=== PATIENT | male | born 1950 | race African-American/Black ===

== ENCOUNTER 2016-06-21 11:29 | Emergency (ER) | payer MEDICARE, MEDICAID ==
--- NOTE | 2016-06-21 11:54 | ER Document Report ---
ED Medical Screen (RME) - General Stated Complaint: LEG PAIN Notes: patient is a 66 year old male c/o leg infection right leg, below the knee. attends wound clinic denies DM, fevers chills chronic wound on left ankle from 2011 afebrile, NSR, normotensive I have greeted and performed a rapid initial assessment of this patient. A comprehensive ED assessment and evaluation of the patient, analysis of test results and completion of the medical decision making process will be conducted by additional ED providers. TRAVEL OUTSIDE OF THE [place] IN LAST 30 DAYS: No - Related Data Allergies/Adverse Reactions: No Known Drug Allergies Allergy (Verified 12/16/13 08:50) fish Adverse Reaction (Unknown, Uncoded 12/16/13 08:50) taste makes pt sick Past Medical History - Past Medical History Cardiac Medical History: Denies: Hx Coronary Artery Disease, Hx Heart Attack, Hx Hypertension Pulmonary Medical History: Reports: Hx Asthma Denies: Hx Bronchitis, Hx COPD, Hx Pneumonia Neurological Medical History: Denies: Hx Cerebrovascular Accident, Hx Seizures GI Medical History: Denies: Hx Hepatitis, Hx Hiatal Hernia, Hx Ulcer Musculoskeltal Medical History: Denies Hx Arthritis Infectious Medical History: Denies: Hx Hepatitis Past Surgical History: Denies: Hx Open Heart Surgery, Hx Pacemaker - Immunizations Hx Diphtheria, Pertussis, Tetanus Vaccination: No
--- NOTE | 2016-06-21 12:53 | ER Document Report ---
HPI - HPI Patient complains to provider of: right leg rash Onset: Other - 1 week Onset/Duration: Better Pain Level: 0 Context: 66-year-old male saw Dr. Freeman on Saturday due to a rash on both sides of his right lower leg. She started him on and told him on Saturday to come to the emergency room because he may need an IV antibiotics. The patient states the rash is better with the oral medication but he could not make it to the ER until today. No fever. No chills. Associated Symptoms: None Exacerbated by: Denies Relieved by: Denies Similar symptoms previously: Yes Recently seen / treated by doctor: Yes - ROS ROS below otherwise negative: Yes Systems Reviewed and Negative: Yes All other systems reviewed and negative - REPRODUCTIVE Reproductive: DENIES: : - DERM Skin Color: Normal Past Medical History - General Information source: Patient - Social History Smoking Status: Current Every Day Smoker Chew tobacco use (# tins/day): No Frequency of alcohol use: None Drug Abuse: None Lives with: Family Family History: Reviewed & Not Pertinent Patient has suicidal ideation: No Patient has homicidal ideation: No Pulmonary Medical History: Reports: Hx Asthma Renal/ Medical History: Denies: Hx Peritoneal Dialysis - Immunizations Hx Diphtheria, Pertussis, Tetanus Vaccination: No Vertical Provider Document - CONSTITUTIONAL Agree With Documented VS: Yes Exam Limitations: No Limitations - INFECTION CONTROL TRAVEL OUTSIDE OF THE [place] IN LAST 30 DAYS: No - HEENT HEENT: Normocephalic - NECK Neck: Supple - RESPIRATORY O2 Sat by Pulse Oximetry: 95 - MUSCULOSKELETAL/EXTREMETIES Musculoskeletal/Extremeties: MAEW, FROM, Tender - Mild tender to open weeping lesions rash to his right lower anterior lateral leg, Edema - Chronic - NEURO Level of Consciousness: Awake, Alert Motor/Sensory: No Motor Deficit, No Sensory Deficit - DERM Integumentary: Warm, Dry, Rash - See above Course - Re-evaluation Re-evalutation: 06/21/16 14:16 I have consulted with the supervisory physician per [facility] Guidelines.. dr rothman, who examined the pt. - Vital Signs Vital signs: Temp Pulse Resp BP Pulse Ox 98.1 F 93 16 139/78 H 95 06/21/16 11:53 06/21/16 11:53 06/21/16 11:53 06/21/16 11:53 06/21/16 11:53 Discharge - Discharge Clinical Impression: right lower leg weeping rash Condition: Good Disposition: HOME, SELF-CARE Instructions: Infections ([facility]), Leg Pain Nonspecific ([facility]) Additional Instructions: wound culture is pending to er if worse see dr. freeman on saturday, not saturday elevate the leg Prescriptions: Cephalexin Monohydrate [Keflex 500 mg Capsule] 500 mg PO QID #28 capsule Referrals: MALISSA FREEMAN MD [Primary Care Provider] - 06/25/16
[2016-06-21] MEDS ORDERED: CEPHALEXIN 500 MG CAPSULE PO ONE (14:23)
[2016-06-21 15:14] VITALS: BP 151/75
== END 2016-06-21 15:10 | disposition home or self-care (01) ==
LOC: ER 11:29
DX: M79.604 Pain in right leg (principal); R21 Rash and other nonspecific skin eruption; F17.200 Nicotine dependence, unspecified, uncomplicated
CPT/HCPCS: 99283; 87070; 87205; 87077; 87186; A9270

== ENCOUNTER 2018-03-06 09:13 | Emergency (ER) | payer MEDICARE, MEDICAID ==
[2018-03-06 09:25] VITALS: BP 132/69
[2018-03-06] MEDS ORDERED: HYDROCODONE/ACETAMINOPHEN 5-325 MG TABLET PO ONE ×2 (09:48→11:49)
[2018-03-06] MEDS ORDERED: LIDOCAINE 1%/EPINEPHRINE INJ 20 ML VIAL INJ ONE (09:48)
--- NOTE | 2018-03-06 09:50 | ER Document Report ---
ED Medical Screen (RME) - General Chief Complaint: Abscess Stated Complaint: POSSIBLE CYST Time Seen by Provider: 03/06/18 09:48 TRAVEL OUTSIDE OF THE [place] IN LAST 30 DAYS: No - HPI Notes: 03/06/18 09:49 Possible abscess pilonidal cyst to the left upper buttocks patient has a history ongoing for the last 2 days - Related Data Allergies/Adverse Reactions: No Known Drug Allergies Allergy (Verified 03/06/18 09:47) fish Adverse Reaction (Unknown, Uncoded 03/06/18 09:47) taste makes pt sick Past Medical History - Social History Frequency of alcohol use: None Drug Abuse: None - Past Medical History Cardiac Medical History: Denies: Hx Coronary Artery Disease, Hx Heart Attack, Hx Hypertension Pulmonary Medical History: Reports: Hx Asthma Denies: Hx Bronchitis, Hx COPD, Hx Pneumonia Neurological Medical History: Denies: Hx Cerebrovascular Accident, Hx Seizures Renal/ Medical History: Denies: Hx Peritoneal Dialysis GI Medical History: Denies: Hx Hepatitis, Hx Hiatal Hernia, Hx Ulcer Musculoskeltal Medical History: Denies Hx Arthritis Infectious Medical History: Denies: Hx Hepatitis Past Surgical History: Reports: Hx Orthopedic Surgery - right ankle. Denies: Hx Open Heart Surgery, Hx Pacemaker - Immunizations Hx Diphtheria, Pertussis, Tetanus Vaccination: No Review of Systems - Review of Systems Constitutional: Other - Abscess upper buttocks Physical Exam - Vital signs Vitals: Temp Pulse Resp BP Pulse Ox 98.7 F 97 16 132/69 H 95 03/06/18 09:20 03/06/18 09:20 03/06/18 09:20 03/06/18 09:20 03/06/18 09:20 - Rectal Notes: Fullness to the left upper buttock cheek Course - Vital Signs Vital signs: Temp Pulse Resp BP Pulse Ox 98.7 F 97 16 132/69 H 95 03/06/18 09:20 03/06/18 09:20 03/06/18 09:20 03/06/18 09:20 03/06/18 09:20 Doctor's Discharge - Discharge Referrals: FIDE MOHR MD [Primary Care Provider] - Follow up as needed
--- NOTE | 2018-03-06 11:55 | ER Document Report ---
HPI - HPI Patient complains to provider of: Abscess Onset: Other - 2 days Onset/Duration: Worse Quality of pain: Achy Pain Level: 4 Context: Patient complains of abscess to right buttock for the past 2 days. Patient denies any fever. Patient does report a previous history of abscess to the buttocks in the past. Associated Symptoms: denies: Fever, Vomiting Exacerbated by: Sitting, Standing, Movement, Walking Relieved by: Denies Similar symptoms previously: Yes Recently seen / treated by doctor: No - ROS ROS below otherwise negative: Yes Systems Reviewed and Negative: Yes All other systems reviewed and negative - CONSTITUTIONAL Constitutional: DENIES: Fever, Chills - NEURO Neurology: DENIES: Weakness - GASTROINTESTINAL Gastrointestinal: DENIES: Nausea, Patient vomiting - MUSCULOSKELETAL Musculoskeletal: REPORTS: Extremity pain - Right buttock - DERM Skin Color: Erythema Notes: Abscess right buttock Past Medical History - General Information source: Patient - Social History Smoking Status: Current Every Day Smoker Smoking Education Provided: Yes Frequency of alcohol use: None Drug Abuse: None Family History: Reviewed & Not Pertinent Patient has suicidal ideation: No Patient has homicidal ideation: No - Past Medical History Cardiac Medical History: Reports: Hx Atrial Fibrillation, Hx Hypertension Denies: Hx Coronary Artery Disease, Hx Heart Attack Pulmonary Medical History: Reports: Hx Asthma Denies: Hx Bronchitis, Hx COPD, Hx Pneumonia Neurological Medical History: Denies: Hx Cerebrovascular Accident, Hx Seizures Renal/ Medical History: Denies: Hx Peritoneal Dialysis GI Medical History: Denies: Hx Hepatitis, Hx Hiatal Hernia, Hx Ulcer Musculoskeletal Medical History: Denies Hx Arthritis Skin Medical History: Reports Hx Cellulitis, Reports Other - Multiple abscess to buttock Infectious Medical History: Denies: Hx Hepatitis Past Surgical History: Reports: Hx Orthopedic Surgery - right ankle. Denies: Hx Open Heart Surgery, Hx Pacemaker - Immunizations Hx Diphtheria, Pertussis, Tetanus Vaccination: No Vertical Provider Document - CONSTITUTIONAL Agree With Documented VS: Yes Exam Limitations: No Limitations General Appearance: WD/WN, No Apparent Distress - INFECTION CONTROL TRAVEL OUTSIDE OF THE [place] IN LAST 30 DAYS: No - HEENT HEENT: Atraumatic, Normocephalic - NECK Neck: Normal Inspection, Supple - RESPIRATORY Respiratory: Breath Sounds Normal, No Respiratory Distress - CARDIOVASCULAR Cardiovascular: Regular Rate, Regular Rhythm - MUSCULOSKELETAL/EXTREMETIES Musculoskeletal/Extremeties: MAEW - NEURO Level of Consciousness: Awake, Alert, Appropriate Motor/Sensory: No Motor Deficit - DERM Integumentary: Warm, Dry, Abscess - Very large abscess to right buttocks with 2 areas of fluctuance. Multiple scars from previous abscess to bilateral buttocks. No involvement of perianal area Course - Re-evaluation Re-evalutation: 03/06/18 Large abscess had incision and drainage procedure performed with large amount of purulent drainage. Wound was packed with iodoform gauze. Patient advised to return in 2 days for wound recheck and encouraged to return sooner for any worsening of symptoms. Patient verbalized understanding and is agreeable with plan of care. - Vital Signs Vital signs: Temp Pulse Resp BP Pulse Ox 98.7 F 97 16 132/69 H 95 03/06/18 09:20 03/06/18 09:20 03/06/18 09:20 03/06/18 09:20 03/06/18 09:20 Procedures - Incision and Drainage Right Buttock Type: Simple Anesthetic type: 1% Lidocaine w/epi Blade size: 11 I&D procedure: Betadine prep applied Incision Method: Incision made by scalpel Amount/type of drainage: Patient with a very large amount of purulent drainage Notes: 03/06/18 11:54 Patient with 2 incisions made to right buttock Adult Front & Back picture: 1 - Large abscess to right buttock Discharge - Discharge Clinical Impression: Abscess of right buttock, Encounter for incision and drainage procedure Condition: Stable Disposition: HOME, SELF-CARE Instructions: Abscess ([facility]), Cephalexin ([facility]), Post Incision and Drainage, Trimethoprim-Sulfa ([facility]) Additional Instructions: Return immediately for any new or worsening symptoms Followup with your primary care provider, call tomorrow to make a followup appointment Return in 2 days for a wound recheck and to have the packing removed Wound culture is pending, we will call if you need any different treatment Prescriptions: Cephalexin Monohydrate [Keflex 500 mg Capsule] 500 mg PO Q6H 7 Days capsule Sulfamethoxazole/Trimethoprim [Bactrim Ds Tablet] 1 each PO BID #20 tablet Forms: Smoking Cessation Education Referrals: FIDE MOHR MD [Primary Care Provider] - Follow up as needed MALISSA FREEMAN MD [ACTIVE STAFF] - Follow up as needed
[2018-03-06] MEDS ORDERED: SULFAMETHOXAZOLE/TRIMETHOPRIM 800-160 MG TABLET PO ONE (11:56)
[2018-03-06] MEDS ORDERED: CEPHALEXIN 500 MG CAPSULE PO ONE (11:56)
== END 2018-03-06 12:05 | disposition home or self-care (01) ==
LOC: ER 09:13
PROC: 0H98XZZ Drainage of Buttock Skin, External Approach (ICD-10-PCS; principal; 2018-03-06)
DX: L02.31 Cutaneous abscess of buttock (principal); F17.200 Nicotine dependence, unspecified, uncomplicated; I48.91 Unspecified atrial fibrillation; I10 Essential (primary) hypertension
CPT/HCPCS: 99283; 87070; 87205; 87075; 87077; 10060; A6266; A9270 ×3; J3490

== ENCOUNTER 2018-03-08 10:45 | Emergency (ER) | payer MEDICARE, MEDICAID ==
[2018-03-08 10:51] VITALS: BP 116/62
--- NOTE | 2018-03-08 11:11 | ER Document Report ---
ED Medical Screen (RME) - General Chief Complaint: Wound Recheck Stated Complaint: WOUND RECHECK Time Seen by Provider: 03/08/18 11:08 Notes: Patient is a 68-year-old male that presents to the emergency department for chief complaint of wound recheck after I&D. Patient states that he had a cyst opened up 2 days ago, and was told to come back to the emergency department, has been on antibiotics, denies any new symptoms such as fevers, chills, night sweats, overall he states he feels better.. ROS: Unless otherwise stated in this report the patient's positive and negative responses for review of systems for constitutional, eyes, ENT, cardiovascular, respiratory, gastrointestinal, neurological, genitourinary, musculoskeletal, and integumentary systems and related systems to the presenting problem are either as stated in the HPI or were not pertinent or were negative for the symptoms and/or complaints related to the presenting medical problem. PHYSICAL EXAMINATION: Vital signs reviewed. GENERAL: Well-appearing, well-nourished and in no acute distress. HEAD: Atraumatic, normocephalic. EYES: Pupils equal round extraocular movements intact, conjunctiva are normal. ENT: Nares patent NECK: Normal range of motion CV: Heart regular rate and rhythm LUNGS: No respiratory distress Musculoskeletal: Normal range of motion NEUROLOGICAL: Normal speech PSYCH: Normal mood, normal affect. MDM: Patient seen and examined for rapid initial assessment. Vital signs reviewed. A comprehensive ED assessment and evaluation of the patient, analysis of test results and completion of the medical decision making process will be conducted by additional ED providers. *Note is created using voice recognition software and may contain spelling, syntax or grammatical errors. TRAVEL OUTSIDE OF THE [place] IN LAST 30 DAYS: No - Related Data Allergies/Adverse Reactions: No Known Drug Allergies Allergy (Verified 03/08/18 10:46) fish Adverse Reaction (Unknown, Uncoded 03/08/18 10:46) taste makes pt sick Past Medical History - Social History Chew tobacco use (# tins/day): No Frequency of alcohol use: Occasional Drug Abuse: None - Past Medical History Cardiac Medical History: Reports: Hx Atrial Fibrillation, Hx Hypertension Denies: Hx Coronary Artery Disease, Hx Heart Attack Pulmonary Medical History: Reports: Hx Asthma Denies: Hx Bronchitis, Hx COPD, Hx Pneumonia Neurological Medical History: Denies: Hx Cerebrovascular Accident, Hx Seizures Renal/ Medical History: Denies: Hx Peritoneal Dialysis GI Medical History: Denies: Hx Hepatitis, Hx Hiatal Hernia, Hx Ulcer Musculoskeltal Medical History: Denies Hx Arthritis Skin Medical History: Reports Hx Cellulitis Infectious Medical History: Denies: Hx Hepatitis Past Surgical History: Reports: Hx Orthopedic Surgery - right ankle. Denies: Hx Open Heart Surgery, Hx Pacemaker - Immunizations Hx Diphtheria, Pertussis, Tetanus Vaccination: No Physical Exam - Vital signs Vitals: Temp Pulse Resp BP Pulse Ox 98.3 F 74 15 116/62 96 03/08/18 10:50 03/08/18 10:50 03/08/18 10:50 03/08/18 10:50 03/08/18 10:50 Course - Vital Signs Vital signs: Temp Pulse Resp BP Pulse Ox 98.3 F 74 15 116/62 96 03/08/18 10:50 03/08/18 10:50 03/08/18 10:50 03/08/18 10:50 03/08/18 10:50 Doctor's Discharge - Discharge Referrals: FIDE MOHR MD [Primary Care Provider] - Follow up as needed
--- NOTE | 2018-03-08 11:39 | ER Document Report ---
HPI - HPI Patient complains to provider of: Wound recheck Onset/Duration: Better Quality of pain: Achy Pain Level: 1 Context: Patient presents for wound recheck from an abscess that had an incision and drainage procedure performed 2 days ago. Patient states that he has been taking his antibiotics as prescribed. Patient states that the area feels like it is starting to get better and he reports decreased tenderness to the area. Patient denies any fever. Associated Symptoms: Other - Wound recheck Exacerbated by: Movement Relieved by: Denies Similar symptoms previously: Yes Recently seen / treated by doctor: Yes - ROS ROS below otherwise negative: Yes Systems Reviewed and Negative: Yes All other systems reviewed and negative - CONSTITUTIONAL Constitutional: DENIES: Fever - GASTROINTESTINAL Gastrointestinal: DENIES: Nausea - REPRODUCTIVE Reproductive: DENIES: : - DERM Skin Color: Normal Notes: Abscess status post incision and drainage Past Medical History - General Information source: Patient - Social History Smoking Status: Current Every Day Smoker Chew tobacco use (# tins/day): No Frequency of alcohol use: Occasional Drug Abuse: None Lives with: Alone Family History: Reviewed & Not Pertinent Patient has suicidal ideation: No Patient has homicidal ideation: No - Past Medical History Cardiac Medical History: Reports: Hx Atrial Fibrillation, Hx Hypertension Denies: Hx Coronary Artery Disease, Hx Heart Attack Pulmonary Medical History: Reports: Hx Asthma Denies: Hx Bronchitis, Hx COPD, Hx Pneumonia Neurological Medical History: Denies: Hx Cerebrovascular Accident, Hx Seizures Renal/ Medical History: Denies: Hx Peritoneal Dialysis GI Medical History: Denies: Hx Hepatitis, Hx Hiatal Hernia, Hx Ulcer Musculoskeletal Medical History: Denies Hx Arthritis Skin Medical History: Reports Hx Cellulitis Infectious Medical History: Denies: Hx Hepatitis Past Surgical History: Reports: Hx Orthopedic Surgery - right ankle. Denies: Hx Open Heart Surgery, Hx Pacemaker - Immunizations Hx Diphtheria, Pertussis, Tetanus Vaccination: No Vertical Provider Document - CONSTITUTIONAL Agree With Documented VS: Yes Exam Limitations: No Limitations General Appearance: WD/WN, No Apparent Distress - INFECTION CONTROL TRAVEL OUTSIDE OF THE [place] IN LAST 30 DAYS: No - HEENT HEENT: Atraumatic, Normocephalic - NECK Neck: Normal Inspection - RESPIRATORY Respiratory: No Respiratory Distress - BACK Back: Normal Inspection - MUSCULOSKELETAL/EXTREMETIES Musculoskeletal/Extremeties: MAEW - NEURO Level of Consciousness: Awake, Alert, Appropriate Motor/Sensory: No Motor Deficit - DERM Integumentary: Warm, Dry, Abscess - Patient with resolving abscess to right buttock, minimal purulent drainage noted to dressing. No drainage able to be expressed from abscess. Packing removed Course - Re-evaluation Re-evalutation: 03/08/18 Packing removed from the wound, no additional purulent drainage able to be expressed. Area of erythema has resolved. Patient does have some induration. No concern for perianal involvement. Patient nontoxic in appearance. Discussed symptoms that patient should return medially for. Patient verbalized understanding and agrees with discharge plan of care at this time. - Vital Signs Vital signs: Temp Pulse Resp BP Pulse Ox 98.3 F 74 15 116/62 96 03/08/18 10:50 03/08/18 10:50 03/08/18 10:50 03/08/18 10:50 03/08/18 10:50 Discharge - Discharge Clinical Impression: Encounter for wound re-check Condition: Stable Disposition: HOME, SELF-CARE Instructions: Abscess ([facility]), Antibiotic Therapy ([facility]), Dressing Instructions for Open Wounds ([facility]) Additional Instructions: Return immediately for any new or worsening symptoms Followup with your primary care provider, call tomorrow to make a followup appointment Change dressing daily, monitor for any worsening signs of infection. Continue to take your antibiotics as previously prescribed Referrals: FIDE MOHR MD [Primary Care Provider] - Follow up as needed
== END 2018-03-08 12:00 | disposition home or self-care (01) ==
LOC: ER 10:45
DX: Z48.01 Encounter for change or removal of surgical wound dressing (principal); L02.31 Cutaneous abscess of buttock; I10 Essential (primary) hypertension; J45.909 Unspecified asthma, uncomplicated; F17.200 Nicotine dependence, unspecified, uncomplicated
CPT/HCPCS: 99282

== ENCOUNTER 2018-04-03 10:45 | Emergency (ER) | payer MEDICARE, MEDICAID ==
--- NOTE | 2018-04-03 10:53 | ER Document Report ---
ED Respiratory Problem - General Mode of Arrival: Ambulatory Information source: Patient TRAVEL OUTSIDE OF THE [place] IN LAST 30 DAYS: No <ANNE CONKLIN - Last Filed: 04/03/18 11:01> <NICOLASA TIERNEY - Last Filed: 04/03/18 14:08> - General Stated Complaint: SHORTNESS OF BREATH Time Seen by Provider: 04/03/18 10:47 Notes: 68-year-old male with COPD and asthma who presents to the emergency department today with complaints of respiratory distress. Patient has had increasing shortness of breath for the last few days with an associated cough with white sputum. EMS states on arrival to the patient's residence, he was saturating 91 % on room air. Patient is not on home oxygen. Patient denies any fevers or chest pain. (ANNE CONKLIN) - Related Data Allergies/Adverse Reactions: No Known Drug Allergies Allergy (Verified 04/03/18 10:59) fish Adverse Reaction (Unknown, Uncoded 04/03/18 10:59) taste makes pt sick Past Medical History - General Information source: Patient - Social History Smoking Status: Current Every Day Smoker Cigarette use (# per day): Yes Frequency of alcohol use: Occasional Drug Abuse: None Lives with: Friend Family History: Reviewed & Not Pertinent - Past Medical History Cardiac Medical History: Reports: Hx Atrial Fibrillation, Hx Hypertension Pulmonary Medical History: Reports: Hx Asthma Skin Medical History: Reports Hx Cellulitis Past Surgical History: Reports: Hx Orthopedic Surgery - right ankle - Immunizations Hx Diphtheria, Pertussis, Tetanus Vaccination: No <ANNE CONKLIN - Last Filed: 04/03/18 11:01> Review of Systems - Review of Systems Constitutional: denies: Fever EENT: No symptoms reported Cardiovascular: No symptoms reported. denies: Chest pain Respiratory: See HPI, Cough, Short of breath, Wheezing Gastrointestinal: No symptoms reported Genitourinary: No symptoms reported Male Genitourinary: No symptoms reported Musculoskeletal: No symptoms reported Skin: No symptoms reported Hematologic/Lymphatic: No symptoms reported Neurological/Psychological: No symptoms reported -: Yes All other systems reviewed and negative <ANNE CONKLIN - Last Filed: 04/03/18 11:01> Physical Exam <ANNE CONKLIN - Last Filed: 04/03/18 11:01> <NICOLASA TIERNEY - Last Filed: 04/03/18 14:08> - Vital signs Vitals: Temp Pulse Resp BP Pulse Ox 97.3 F 98 26 H 147/90 H 96 04/03/18 10:47 04/03/18 10:47 04/03/18 10:47 04/03/18 10:47 04/03/18 10:47 - Notes Notes: Physical Exam: General: Alert, appears in some distress. HEENT: Normocephalic. Atraumatic. PERRL. Extraocular movements intact. Oropharynx clear. Neck: Supple. Non-tender. Respiratory: Mild to moderate respiratory distress. Diffuse inspiratory/ expiratory wheezing, retracting. Cardiovascular: Regular rate and rhythm. Abdominal: Normal Inspection. Non-tender. No distension. Normal Bowel Sounds. Back: Non-tender. No deformity or step off. Extremities: Moves all four extremities. Upper extremities: Normal inspection. Normal ROM. Lower extremities: Normal inspection. No edema. Normal ROM. Neurological: Normal cognition. AAOx4. Normal speech. Psychological: Normal affect. Normal Mood. Skin: Warm. Dry. Normal color. (ANNE CONKLIN) Course - Laboratory Result Diagrams: 04/03/18 10:25 04/03/18 10:25 <ANNE CONKLIN - Last Filed: 04/03/18 11:01> - Laboratory Result Diagrams: 04/03/18 10:25 04/03/18 11:22 - Diagnostic Test Radiology reviewed: Image reviewed, Reports reviewed - Chest x-ray shows COPD without acute changes. - EKG Interpretation by Nv EKG shows normal: Sinus rhythm, Kipling, QRS Complexes, ST-T Waves. abnormal: Intervals - Borderline prolonged QT interval Rate: Normal - 95 Rhythm: NSR Kipling/QRS: Left axis deviation <NICOLASA TIERNEY - Last Filed: 04/03/18 14:08> - Re-evaluation Re-evalutation: 04/03/18 13:48 Patient reports at this time his breathing is completely back to his baseline. He does have expiratory wheezes associated with some air trapping, but he reports this is normal for him. He does have severe COPD on chest x-ray. He is anxious to go home. Pulse ox is 93% on room air. He is not tachycardic. ( NICOLASA TIERNEY) - Vital Signs Vital signs: Temp Pulse Resp BP Pulse Ox 97.3 F 98 17 130/73 H 91 L 04/03/18 10:47 04/03/18 10:47 04/03/18 14:01 04/03/18 14:01 04/03/18 14:01 - Laboratory Laboratory results interpreted by me: 04/03/18 04/03/18 04/03/18 10:25 11: 13:09 RDW 17.0 H Eosinophils % 10.8 H Glucose 113 H Magnesium 2.4 H Total Bilirubin 1.5 H Direct Bilirubin 0.5 H AST 13 L ALT 18 L Creatine Kinase 205 H Urine Blood SMALL H Urine Urobilinogen 4.0 H Discharge <ANNE CONKLIN - Last Filed: 04/03/18 11:01> <NICOLASA TIERNEY - Last Filed: 04/03/18 14:08> - Discharge Clinical Impression: Acute exacerbation of COPD with asthma Condition: Stable Disposition: HOME, SELF-CARE Additional Instructions: Chronic Obstructive Lung Disease You have chronic obstructive lung disease (COPD). The symptoms come from emphysema (damage to small airways, with trapping of air in large sacks in the lung) and chronic bronchitis (repeated infection and damage to larger airways). The cause is almost always cigarette smoking, although dust exposure, asthma, and infections contribute. You should avoid fumes, dust, and smoke (especially tobacco smoke). Your condition will flare from time to time. There is no cure, but the symptoms can be treated. Bronchodilators (asthma medicine) are often helpful. Antibiotics help when infection is present. When shortness of breath is severe, we may prescribe cortisone medication. If medicine doesn't help enough, we can arrange for you to have an oxygen tank at home. Notify your doctor at once if sputum becomes thick, foul, or bloody, if you develop a fever or chest pain, or if your shortness of breath worsens. Take the medication as prescribed. Start the prednisone tomorrow--you have had all of today's dose here in the emergency room. Use the inhaler 2 puffs every 2-4 hours for wheezing as needed. Stop smoking. Get plenty of rest. Follow-up with your doctor Saturday for recheck if not improving. RETURN TO THE EMERGENCY ROOM IF ANY NEW OR WORSENING SYMPTOMS. Prescriptions: Albuterol Sulfate [Proair Hfa Inhalation Aerosol 8.5 gm Mdi] 2 puff IH ASDIR PRN #1 mdi PRN Reason: Doxycycline Hyclate 100 mg PO BID #14 tablet. Prednisone [Deltasone 10 mg Tablet] 10 mg PO ASDIR PRN #21 tablet PRN Reason: Referrals: MALISSA FREEMAN MD [Primary Care Provider] - Follow up as needed Scribe Attestation: 04/03/18 11:09 I personally performed the services described in the documentation, reviewed and edited the documentation which was dictated to the scribe in my presence, and it accurately records my words and actions. (NICOLASA TIERNEY) Scribe Documentation - Scribe Written by Christen:: Christen Penny, 04/03/2018 1055 acting as scribe for :: Campbell <ANNE CONKLIN - Last Filed: 04/03/18 11:01>
[2018-04-03 11:02] LABS: ABSOLUTE BASOPHILS # (AUTO) 0.1 10^3/uL (0.0-0.2); ABSOLUTE EOSINOPHILS # (AUTO) 0.6 10^3/uL (0.0-0.6); ABSOLUTE LYMPHOCYTES (AUTO) 1.3 10^3/uL (0.5-4.7); ABSOLUTE MONOCYTES (AUTO) 0.6 10^3/uL (0.1-1.4); ABSOLUTE NEUT (AUTO) 3.2 10^3/uL (1.7-8.2); BASOPHILS % (AUTO) 0.9 % (0-2); EOSINOPHILS % (AUTO) 10.8 % (0-6); HEMATOCRIT 47.2 % (37.9-51.0); HEMOGLOBIN 15.9 g/dL (13.5-17.0); LYMPHOCYTES % (AUTO) 22.9 % (13-45); MEAN CORPUSCULAR HEMOGLOBIN 29.5 pg (27.0-33.4); MEAN CORPUSCULAR HGB CONC 33.6 g/dL (32.0-36.0); MEAN CORPUSCULAR VOLUME 88 fl (80-97); MONOCYTES % (AUTO) 9.8 % (3-13); PLATELET COUNT 238 10^3/uL (150-450); RED BLOOD COUNT 5.38 10^6/uL (4.35-5.55); SEGMENTED NEUTROPHILS % (AUTO) 55.6 % (42-78); TOTAL CELLS COUNTED % (AUTO) 100 %; WHITE BLOOD COUNT 5.7 10^3/uL (4.0-10.5)
[2018-04-03] MEDS ORDERED: ALBUTEROL SULFATE 0.083% NEB 2.5 MG/3 ML AMPUL NEB ONE ×2 (11:03→12:06)
[2018-04-03] MEDS: MAGNESIUM SULFATE/D5W 1 GM/100 ML RTUPB IV SCH ×2 (11:11→11:46)
--- NOTE | 2018-04-03 11:27 | RADIOLOGY REPORT (SQ) ---
EXAM DESCRIPTION: CHEST SINGLE VIEW COMPLETED DATE/TIME: 04/03/2018 11:12 am REASON FOR STUDY: COPD exacerbation COMPARISON: 03/17/2014, 04/25/2015 EXAM PARAMETERS: NUMBER OF VIEWS: One view. TECHNIQUE: Single frontal radiographic view of the chest acquired. RADIATION DOSE: NA LIMITATIONS: None. FINDINGS: LUNGS AND PLEURA: Upper lobes are hyperlucent from obstructive disease. 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 No acute infiltrates. No pleural effusion or pneumothorax. MEDIASTINUM AND HILAR STRUCTURES: No masses. Contour normal. HEART AND VASCULAR STRUCTURES: Heart normal in size. Normal vasculature. BONES: No acute findings. HARDWARE: None in the chest. OTHER: No other significant finding. IMPRESSION: Obstructive lung disease at the apices. No acute findings TECHNICAL DOCUMENTATION: JOB ID: [id number] [employer]- All Rights Reserved Reading location - IP/workstation name: [email or web address]
[2018-04-03 11:54] LABS: ALANINE AMINOTRANSFERASE 18 U/L (21-72); ALBUMIN 4.5 g/dL (3.5-5.0); ALKALINE PHOSPHATASE 81 U/L (38-126); ANION GAP 10 (5-19); ASPARTATE AMINO TRANSFERASE 13 U/L (17-59); BILIRUBIN,DIRECT 0.5 mg/dL (0.0-0.4); BILIRUBIN,TOTAL 1.5 mg/dL (0.2-1.3); BLOOD UREA NITROGEN 12 mg/dL (7-20); CALCIUM 9.1 mg/dL (8.4-10.2); CARBON DIOXIDE 27 mmol/L (22-30); CHLORIDE 106 mmol/L (98-107); CREATINE KINASE 205 U/L (55-170); GLUCOSE 113 mg/dL (75-110); POTASSIUM 4.6 mmol/L (3.6-5.0); SODIUM 142.5 mmol/L (137-145); TOTAL PROTEIN 7.8 g/dL (6.3-8.2)
[2018-04-03 12:06] LABS: CREATINE KINASE MB 0.71 ng/mL (<4.55); TROPONIN I < 0.012 ng/mL
[2018-04-03 13:30] LABS: APPEARANCE,URINE CLEAR; BILIRUBIN,URINE NEGATIVE (NEGATIVE); COLOR,URINE YELLOW; GLUCOSE, URINE NEGATIVE (NEGATIVE); KETONES,URINE NEGATIVE (NEGATIVE); LEUKOCYTE ESTERASE,URINE NEGATIVE (NEGATIVE); NITRITE,URINE NEGATIVE (NEGATIVE); PROTEIN,URINE NEGATIVE (NEGATIVE); URINE SPECIFIC GRAVITY 1.015
[2018-04-03] MEDS ORDERED: PREDNISONE 20 MG TABLET PO ONE (13:46)
[2018-04-03] MEDS ORDERED: DOXYCYCLINE HYCLATE 100 MG TABLET PO ONE (13:46)
[2018-04-03] MEDS ORDERED: ALBUTEROL SULFATE HFA (90 MCG/PUFF) 8 GM MDI (1 MDI/ER DISP) IH ONE (13:46)
[2018-04-03 14:04] VITALS: BP 130/73
--- NOTE | 2018-04-03 19:55 | EKG REPORT ---
SEVERITY:- BORDERLINE ECG - SINUS RHYTHM BORDERLINE LEFT AXIS DEVIATION BORDERLINE PROLONGED QT INTERVAL : Confirmed by: Kamryn Fernández MD 03-Apr-2018 19:55:25
== END 2018-04-03 14:14 | disposition home or self-care (01) ==
LOC: ER 10:45
DX: J44.1 Chronic obstructive pulmonary disease with (acute) exacerbation (principal); R06.02 Shortness of breath; R05 Cough; I10 Essential (primary) hypertension; R94.31 Abnormal electrocardiogram [ECG] [EKG]; F17.210 Nicotine dependence, cigarettes, uncomplicated
CPT/HCPCS: 93005; 94640; 99285; 96365; 36415; 82553; 82550; 83735; 85025; 80053; 81001; 84484; 71045; 93010; A9270 ×3; J3475; J3490; J7512

== ENCOUNTER 2018-07-11 16:17 | Emergency (ER) | payer MEDICARE, MEDICAID ==
--- NOTE | 2018-07-11 18:42 | ER Document Report ---
ED General - General Chief Complaint: ETOH Abuse Stated Complaint: NON-RESPONSIVE Time Seen by Provider: 07/11/18 18:38 Primary Care Provider: MALISSA FREEMAN MD [Primary Care Provider] - Follow up as needed Cannot obtain history due to: Intoxicated Notes: Patient is a 67yoM w/ pMHX of alcohol abuse, htn, with alcohol intoxication from a bar. Patient apparently went to a bar that does not serve none members. Patient refused to leave, laid on the ground and EMS was called. The patient admits to drinking heavily today. Denies any medical concerns. States he just wants to go home. Denies any trauma. Would like to call somebody to take him home. Denies any pain. History otherwise limited secondary to patient's intoxication. TRAVEL OUTSIDE OF THE [place] IN LAST 30 DAYS: No - Related Data Allergies/Adverse Reactions: No Known Drug Allergies Allergy (Verified 04/03/18 10:59) fish Adverse Reaction (Unknown, Uncoded 04/03/18 10:59) taste makes pt sick Past Medical History - General Information source: Patient - Social History Smoking Status: Never Smoker Frequency of alcohol use: Heavy Drug Abuse: None Lives with: Family Family History: Reviewed & Not Pertinent Patient has suicidal ideation: No Patient has homicidal ideation: No - Past Medical History Cardiac Medical History: Reports: Hx Atrial Fibrillation, Hx Hypertension Denies: Hx Coronary Artery Disease, Hx Heart Attack Pulmonary Medical History: Reports: Hx Asthma Denies: Hx Bronchitis, Hx COPD, Hx Pneumonia Neurological Medical History: Denies: Hx Cerebrovascular Accident, Hx Seizures Renal/ Medical History: Denies: Hx Peritoneal Dialysis GI Medical History: Denies: Hx Hepatitis, Hx Hiatal Hernia, Hx Ulcer Musculoskeletal Medical History: Denies Hx Arthritis Skin Medical History: Reports Hx Cellulitis Infectious Medical History: Denies: Hx Hepatitis Past Surgical History: Reports: Hx Orthopedic Surgery - right ankle. Denies: Hx Open Heart Surgery, Hx Pacemaker - Immunizations Hx Diphtheria, Pertussis, Tetanus Vaccination: No Review of Systems - Review of Systems Notes: Constitutional: Negative for fever. HENT: Negative for sore throat. Eyes: Negative for visual changes. Cardiovascular: Negative for chest pain. Respiratory: Negative for shortness of breath. Gastrointestinal: Negative for abdominal pain, vomiting or diarrhea. Genitourinary: Negative for dysuria. Musculoskeletal: Negative for back pain. Skin: Negative for rash. Neurological: Negative for headaches, weakness or numbness. 10 point ROS negative except as marked above and in HPI. Physical Exam - Vital signs Vitals: Temp Pulse Resp BP Pulse Ox 98.1 F 89 20 115/59 L 94 07/11/18 16:39 07/11/18 16:39 07/11/18 16:39 07/11/18 16:39 07/11/18 16:39 Interpretation: Normal Notes: PHYSICAL EXAMINATION: GENERAL: Moderately intoxicated, no acute distress HEAD: Atraumatic, normocephalic. EYES: Pupils equal round and reactive to light, extraocular movements intact, sclera anicteric, conjunctiva are normal. ENT: nares patent, no oral pharyngeal trauma. No hemotympanum, no Bright's sign, no raccoon eyes. NECK: No midline cervical spine tenderness. Patient able to move their head to 45 bilaterally without any discomfort. LUNGS: Breath sounds clear to auscultation bilaterally and equal. No wheezes rales or rhonchi. HEART: Regular rate and rhythm without murmurs. CHEST WALL: No ecchymosis over the chest wall. ABDOMEN: Soft, nontender, normoactive bowel sounds. No guarding, no rebound. No abdominal bruising EXTREMITIES: Normal range of motion, no pitting or edema. No long bone deformities. BACK: No midline spinal tenderness, step-offs, or deformities. NEUROLOGICAL: Face symmetric. Tongue protrudes midline. Extraocular motions intact. Pupils are 2 mm and equally reactive. Normal speech, normal gait. 5 out of 5 strength in both the distal and proximal upper and lower extremities bilaterally. Sensation is grossly intact throughout. PSYCH: Otherwise pleasant on contact moderately intoxicated SKIN: Warm, Dry, normal turgor, no rashes or lesions noted. Course - Re-evaluation Re-evalutation: 07/11/18 18:42 Patient presents with acute alcohol intoxication without any additional acute complaints. Admits to heavy alcohol use today. No evidence of trauma on exam. Patient was moderately intoxicated at time of arrival but was able to speak in clear sentences can follow all commands and walk without difficulty. He is asked to be discharged home and does not be grounds to maintain him here in the emergency department against his will. Tolerating oral intake without difficulty. The patient has been instructed to seek help for alcohol detoxification. Will discharge and return precautions and follow-up recommendations. - Vital Signs Vital signs: Temp Pulse Resp BP Pulse Ox 98.1 F 92 20 125/85 94 07/11/18 19:13 07/11/18 19:13 07/11/18 19:13 07/11/18 19:13 07/11/18 19:13 Discharge - Discharge Clinical Impression: Alcohol abuse Condition: Good Disposition: HOME, SELF-CARE Additional Instructions: You were seen in the emergency department today for being drunk. Being seen in the emergency department after drinking alcohol is a serious indicator that you have a problem with alcohol. You should seek help with for your problem drinking. Please return to the emergency room immediately if you experience any concerning symptoms including high fevers, severe headache, chest pain, difficulty breathing, abdominal pain, slurred speech, numbness or weakness in your arms or legs, or any other symptom that concerns you. Referrals: MALISSA FREEMAN MD [Primary Care Provider] - Follow up as needed
[2018-07-11 19:18] VITALS: BP 125/85
== END 2018-07-11 19:18 | disposition home or self-care (01) ==
LOC: ER 16:17
DX: F10.10 Alcohol abuse, uncomplicated (principal); I10 Essential (primary) hypertension; J45.909 Unspecified asthma, uncomplicated
CPT/HCPCS: 99284

== ENCOUNTER 2018-07-17 14:54 | Emergency (ER) | payer MEDICARE, MEDICAID ==
[2018-07-17 15:11] VITALS: BP 142/74
--- NOTE | 2018-07-17 16:24 | ER Document Report ---
ED Medical Screen (RME) - General Chief Complaint: Skin Problem Stated Complaint: POSSIBLE HAND INFECTION Time Seen by Provider: 07/17/18 16:14 Primary Care Provider: MALISSA FREEMAN MD [Primary Care Provider] - Follow up as needed Mode of Arrival: Ambulatory Information source: Patient Notes: This is a 68-year-old man with a history of hypertension, asthma who presents to the emergency room with a rash to both hands. He states it was itchy at first and then started putting some lotion on it and now is scaling. He denies any fever, chills. He denies any significant pain. TRAVEL OUTSIDE OF THE [place] IN LAST 30 DAYS: No - Related Data Allergies/Adverse Reactions: No Known Drug Allergies Allergy (Verified 07/17/18 15:04) fish Adverse Reaction (Unknown, Uncoded 07/17/18 15:04) taste makes pt sick Past Medical History - Social History Chew tobacco use (# tins/day): No Frequency of alcohol use: Occasional Drug Abuse: None - Past Medical History Cardiac Medical History: Reports: Hx Atrial Fibrillation, Hx Hypertension Denies: Hx Coronary Artery Disease, Hx Heart Attack Pulmonary Medical History: Reports: Hx Asthma Denies: Hx Bronchitis, Hx COPD, Hx Pneumonia Neurological Medical History: Denies: Hx Cerebrovascular Accident, Hx Seizures Renal/ Medical History: Denies: Hx Peritoneal Dialysis GI Medical History: Denies: Hx Hepatitis, Hx Hiatal Hernia, Hx Ulcer Musculoskeltal Medical History: Denies Hx Arthritis Skin Medical History: Reports Hx Cellulitis Infectious Medical History: Denies: Hx Hepatitis Past Surgical History: Reports: Hx Orthopedic Surgery - right ankle. Denies: Hx Open Heart Surgery, Hx Pacemaker - Immunizations Hx Diphtheria, Pertussis, Tetanus Vaccination: No Physical Exam - Vital signs Vitals: Temp Pulse Resp BP Pulse Ox 98.5 F 99 18 142/74 H 95 07/17/18 15:10 07/17/18 15:10 07/17/18 15:10 07/17/18 15:10 07/17/18 15:10 Course - Vital Signs Vital signs: Temp Pulse Resp BP Pulse Ox 98.5 F 99 18 142/74 H 95 07/17/18 15:10 07/17/18 15:10 07/17/18 15:10 07/17/18 15:10 07/17/18 15:10 Doctor's Discharge - Discharge Referrals: MALISSA FREEMAN MD [Primary Care Provider] - Follow up as needed
[2018-07-17 16:42] LABS: ABSOLUTE BASOPHILS # (AUTO) 0.1 10^3/uL (0.0-0.2); ABSOLUTE EOSINOPHILS # (AUTO) 0.4 10^3/uL (0.0-0.6); ABSOLUTE LYMPHOCYTES (AUTO) 1.3 10^3/uL (0.5-4.7); ABSOLUTE MONOCYTES (AUTO) 0.8 10^3/uL (0.1-1.4); ABSOLUTE NEUT (AUTO) 4.6 10^3/uL (1.7-8.2); BASOPHILS % (AUTO) 0.7 % (0-2); EOSINOPHILS % (AUTO) 5.2 % (0-6); HEMATOCRIT 42.9 % (37.9-51.0); HEMOGLOBIN 14.5 g/dL (13.5-17.0); LYMPHOCYTES % (AUTO) 18.1 % (13-45); MEAN CORPUSCULAR HEMOGLOBIN 29.2 pg (27.0-33.4); MEAN CORPUSCULAR HGB CONC 33.7 g/dL (32.0-36.0); MEAN CORPUSCULAR VOLUME 87 fl (80-97); MONOCYTES % (AUTO) 11.3 % (3-13); PLATELET COUNT 345 10^3/uL (150-450); RED BLOOD COUNT 4.95 10^6/uL (4.35-5.55); RED CELL DISTRIBUTION WIDTH 15.6 % (11.5-14.0); SEGMENTED NEUTROPHILS % (AUTO) 64.7 % (42-78); TOTAL CELLS COUNTED % (AUTO) 100 %; WHITE BLOOD COUNT 7.1 10^3/uL (4.0-10.5)
[2018-07-17 17:02] LABS: ALANINE AMINOTRANSFERASE 20 U/L (21-72); ALBUMIN 4.4 g/dL (3.5-5.0); ALKALINE PHOSPHATASE 93 U/L (38-126); ANION GAP 11 (5-19); ASPARTATE AMINO TRANSFERASE 18 U/L (17-59); BILIRUBIN,DIRECT 0.4 mg/dL (0.0-0.4); BLOOD UREA NITROGEN 10 mg/dL (7-20); CARBON DIOXIDE 23 mmol/L (22-30); CHLORIDE 106 mmol/L (98-107); GLUCOSE 98 mg/dL (75-110); POTASSIUM 4.4 mmol/L (3.6-5.0); SODIUM 139.7 mmol/L (137-145); TOTAL PROTEIN 7.5 g/dL (6.3-8.2)
[2018-07-17] MEDS ORDERED: NYSTATIN/TRIAMCIN OINTMENT 15 GM TP ONE (18:16)
[2018-07-17] MEDS ORDERED: FLUCONAZOLE 100 MG TABLET PO ONE (18:16)
--- NOTE | 2018-07-17 18:22 | ER Document Report ---
ED Skin Rash/Insect Bite/Abscs - General Chief Complaint: Skin Problem Stated Complaint: POSSIBLE HAND INFECTION Time Seen by Provider: 07/17/18 16:14 Primary Care Provider: MALISSA FREEMAN MD [ACTIVE STAFF] - Follow up as needed Mode of Arrival: Ambulatory Information source: Patient Notes: 68-year-old male presented to ED for complaint of scaly itchy red swollen hands. He states he started with a little bit of a rash about a week ago and it is slowly progressed to this. He states that his hands have been so itchy and has been putting some kind of lotion on it but he does not remember what kind of lotion. Patient is questioning some kind of treatment for this rash today while in the emergency room. Patient does have a history of atrial fib high blood pressure asthma cellulitis. TRAVEL OUTSIDE OF THE [place] IN LAST 30 DAYS: No - HPI Patient complains to provider of: Skin rash/lesion Onset: Last week Onset/Duration: Gradual, Worse Quality of pain: Pressure Severity: Mild Pain Level: 1 Skin Character: Rash, Scales, Swelling Quality of rash: Itchy, Painful Identify cause: No Exacerbated by: Denies Relieved by: Denies Similar symptoms previously: Yes Recently seen / treated by doctor: No - Related Data Allergies/Adverse Reactions: No Known Drug Allergies Allergy (Verified 07/17/18 15:04) fish Adverse Reaction (Unknown, Uncoded 07/17/18 15:04) taste makes pt sick Past Medical History - General Information source: Patient - Social History Smoking Status: Current Every Day Smoker Cigarette use (# per day): Yes Chew tobacco use (# tins/day): No Smoking Education Provided: Yes - 4 minutes Frequency of alcohol use: Occasional Drug Abuse: None Family History: Reviewed & Not Pertinent Patient has suicidal ideation: No Patient has homicidal ideation: No - Past Medical History Cardiac Medical History: Reports: Hx Atrial Fibrillation, Hx Hypertension Pulmonary Medical History: Reports: Hx Asthma EENT Medical History: Reports: None Neurological Medical History: Reports: None Endocrine Medical History: Reports: None Renal/ Medical History: Reports: None Malignancy Medical History: Reports None GI Medical History: Reports: None Musculoskeletal Medical History: Reports None Skin Medical History: Reports Hx Cellulitis Psychiatric Medical History: Reports: None Traumatic Medical History: Reports: None Infectious Medical History: Reports: None Past Surgical History: Reports: Hx Orthopedic Surgery - right ankle - Immunizations Hx Diphtheria, Pertussis, Tetanus Vaccination: No Review of Systems - Review of Systems Constitutional: No symptoms reported EENT: No symptoms reported Cardiovascular: No symptoms reported Respiratory: No symptoms reported Gastrointestinal: No symptoms reported Genitourinary: No symptoms reported Male Genitourinary: No symptoms reported Musculoskeletal: Other Skin: Rash - Scaly swollen itchy rash to both hands with a yellow crusty drainage Hematologic/Lymphatic: No symptoms reported Neurological/Psychological: No symptoms reported -: Yes All other systems reviewed and negative Physical Exam - Vital signs Vitals: Temp Pulse Resp BP Pulse Ox 98.5 F 99 18 142/74 H 95 07/17/18 15:10 07/17/18 15:10 07/17/18 15:10 07/17/18 15:10 07/17/18 15:10 Interpretation: Normal - General General appearance: Appears well, Alert - HEENT Head: Normocephalic, Atraumatic Eyes: Normal Pupils: PERRL - Respiratory Respiratory status: No respiratory distress Chest status: Nontender Breath sounds: Normal Chest palpation: Normal - Cardiovascular Rhythm: Regular Heart sounds: Normal auscultation Murmur: No - Abdominal Inspection: Normal Distension: No distension Bowel sounds: Normal Tenderness: Nontender Organomegaly: No organomegaly - Back Back: Normal, Nontender - Extremities General upper extremity: Normal inspection, Nontender, Normal color, Normal ROM, Normal temperature General lower extremity: Normal inspection, Nontender, Normal color, Normal ROM, Normal temperature, Normal weight bearing. No: Miranda's sign - Neurological Neuro grossly intact: Yes Cognition: Normal Orientation: AAOx4 [place] Coma Scale Eye Opening: Spontaneous [place] Coma Scale Verbal: Oriented [place] Coma Scale Motor: Obeys Commands [place] Coma Scale Total: 15 Speech: Normal Motor strength normal: LUE, RUE, LLE, RLE Sensory: Normal - Psychological Associated symptoms: Normal affect, Normal mood - Skin Skin Temperature: Warm Skin Moisture: Dry Skin Color: Normal Skin irregularity: Rash Location of irregularity: Extremities - Bilateral hands Irregularity with: Swelling, Tenderness, Thickening, Scaling, Crusting, Inflammation Course - Re-evaluation Re-evalutation: 07/17/18 18:[address] Reed and he recommended Diflucan pill 1 in the emergency room and discharged home with Mycolog ointment to both hands. He is to apply the Mycolog twice a day. He is also to follow-up with a school curriculum developer. Patient was treated with the Diflucan in the emergency room 100 mg a thin coat of Mycolog applied to both hands. Patient was given instructions on cleaning hands with Dial soap and rinsing well and patting dry then putting the Mycolog on twice a day. He was also given a prescription for refills for the Mycolog. Patient verbalized understanding of the need to go to dermatology as soon as possible. - Vital Signs Vital signs: Temp Pulse Resp BP Pulse Ox 98.5 F 99 18 142/74 H 95 07/17/18 15:10 07/17/18 15:10 07/17/18 15:10 07/17/18 15:10 07/17/18 15:10 - Laboratory Result Diagrams: 07/17/18 16:29 07/17/18 16:29 Laboratory results interpreted by me: 07/17/18 07/17/18 16:29 16:29 RDW 15.6 H ALT 20 L Discharge - Discharge Clinical Impression: Fungal rash to bilateral hands Condition: Stable Disposition: HOME, SELF-CARE Instructions: Family Physicians / Practices Additional Instructions: You have a fungal rash to both hands. You have been treated with a antifungal medication by mouth and Mycolog in the emergency room and discharged home with a prescription for Mycolog ointment which is a antifungal medication with steroids. You need to wash your hands with Dial soap twice a day, rinse well, pat dry and then apply a thin layer of Mycolog to both hands where the infected area are twice a day. It is very important that you call a school curriculum developer in the morning and get a follow-up appointment as soon as possible. If you develop any fever or redness or increase in symptoms to these areas follow-up with your primary doctor or the emergency room. FOLLOW-UP CARE: If you have been referred to a physician for follow-up care, call the physicians office for an appointment as you were instructed or within the next two days. If you experience worsening or a significant change in your symptoms, notify the physician immediately or return to the Emergency Department at any time for re-evaluation. [facility] [address] [facility] [address] [facility] [address], [place] Prescriptions: Nystatin/Triamcin [Mycolog-II Ointment 15 gm] 15 applic TP BID #2 tube Forms: Elevated Blood Pressure Referrals: MALISSA FREEMAN MD [ACTIVE STAFF] - Follow up as needed
== END 2018-07-17 18:41 | disposition home or self-care (01) ==
LOC: ER 14:54
DX: B35.2 Tinea manuum (principal); F17.210 Nicotine dependence, cigarettes, uncomplicated; I48.91 Unspecified atrial fibrillation; I10 Essential (primary) hypertension
CPT/HCPCS: 99282; 36415; 85025; 80053; J3490; A9270

== ENCOUNTER 2018-08-06 12:08 | Emergency (ER) | payer MEDICARE, MEDICAID ==
[2018-08-06 12:12] VITALS: BP 138/97
[2018-08-06] MEDS ORDERED: FLUCONAZOLE 100 MG TABLET PO ONE (13:01)
--- NOTE | 2018-08-06 13:01 | ER Document Report ---
HPI - HPI Time Seen by Provider: 08/06/18 12:41 Pain Level: 1 Notes: Patient is a 68-year-old male who presents to the emergency department with complaints of fungal infection to his bilateral hands. Patient reports he was seen here for this several weeks ago, given 1 dose of Diflucan and then placed on Mycolog cream. Patient reports these medications helped temporarily however he ran out of the Mycolog cream and the symptoms got much worse. - CONSTITUTIONAL Constitutional: DENIES: Fever, Chills - EENT EENT: DENIES: Sore Throat, Ear Pain, Eye problems - NEURO Neurology: DENIES: Headache, Weakness, Vision blurred, Dizzinesss / Vertigo - CARDIOVASCULAR Cardiovascular: DENIES: Chest pain - RESPIRATORY Respiratory: DENIES: Trouble Breathing, Coughing - GASTROINTESTINAL Gastrointestinal: DENIES: Abdominal Pain, Black / Bloody Stools - URINARY Urinary: DENIES: Dysuria, Urgency, Frequency - REPRODUCTIVE Reproductive: DENIES: : - MUSCULOSKELETAL Musculoskeletal: REPORTS: Extremity pain - BILATERAL HANDS Past Medical History - General Information source: Patient - Social History Smoking Status: Current Every Day Smoker Frequency of alcohol use: None Drug Abuse: None Family History: Reviewed & Not Pertinent Patient has suicidal ideation: No Patient has homicidal ideation: No - Past Medical History Cardiac Medical History: Reports: Hx Atrial Fibrillation, Hx Hypertension Denies: Hx Coronary Artery Disease, Hx Heart Attack Pulmonary Medical History: Reports: Hx Asthma Denies: Hx Bronchitis, Hx COPD, Hx Pneumonia Neurological Medical History: Denies: Hx Cerebrovascular Accident, Hx Seizures Renal/ Medical History: Denies: Hx Peritoneal Dialysis GI Medical History: Denies: Hx Hepatitis, Hx Hiatal Hernia, Hx Ulcer Musculoskeletal Medical History: Denies Hx Arthritis Skin Medical History: Reports Hx Cellulitis Infectious Medical History: Denies: Hx Hepatitis Past Surgical History: Reports: Hx Orthopedic Surgery - right ankle. Denies: Hx Open Heart Surgery, Hx Pacemaker - Immunizations Hx Diphtheria, Pertussis, Tetanus Vaccination: No Vertical Provider Document - CONSTITUTIONAL Notes: PHYSICAL EXAMINATION: GENERAL: Well-appearing, well-nourished and in no acute distress. HEAD: Atraumatic, normocephalic. EYES: Pupils equal round extraocular movements intact, conjunctiva are normal. ENT: Nares patent NECK: Normal range of motion LUNGS: No respiratory distress Musculoskeletal: Normal range of motion NEUROLOGICAL: Normal speech, normal gait. PSYCH: Normal mood, normal affect. SKIN: Warm, Dry, normal turgor, rash to bilateral hands consistent with fungal rash, very dry, scaly and cracking skin. - INFECTION CONTROL TRAVEL OUTSIDE OF THE [place] IN LAST 30 DAYS: No Course - Re-evaluation Re-evalutation: Discussed case with attending physician who came to the bedside to personally ev aluate the patient. Will start patient on Diflucan 1 tablet daily for the next 7 days and will also put him back on the nystatin/triamcinolone cream. Patient highly encouraged to follow-up with dermatology as he was directed to during his last visit to the ED. - Vital Signs Vital signs: Temp Pulse Resp BP Pulse Ox 97.8 F 85 18 138/97 H 100 08/06/18 12:11 08/06/18 12:11 08/06/18 12:11 08/06/18 12:11 08/06/18 12:11 Discharge - Discharge Clinical Impression: Tinea manus Condition: Stable Disposition: HOME, SELF-CARE Additional Instructions: Please take medications as prescribed. Use the cream to the area twice daily. It is very important that you follow-up with a tufting machine fixer. A list of tufting machine fixer has been provided to you. Prescriptions: Fluconazole [Diflucan 100 Mg Tablet] 100 mg PO DAILY #7 tablet Nystatin/Triamcin [Mycolog-II Cream 15 gm] 1 applic TP BID #2 tube Referrals: KYLEE NIXON DO [ACTIVE STAFF] - Follow up as needed
--- NOTE | 2018-08-06 20:50 | ER Document Report ---
Doctor's Note Notes: I personally and independently obtained patient history and examined the patient in conjunction with the APC and agree with the assessment, treatment plan and disposition of the patient as recorded by the APC, and have reviewed the APC's note. HISTORY OF PRESENT ILLNESS: Patient is a 68-year-old male that presents to the emergency department for chief complaint of rash on his hands. Patient was diagnosed with a fungal rash in his hands some time ago, was started on a cream, and given Diflucan, he did get relief, but he ran out of the prescription in the pharmacy would not allow him to refill it. He states that his hands become more cracked, and swollen so he came back to the ED. ROS: Constitutional: Negative for fever. Cardiovascular: Negative for chest pain. Respiratory: Negative for shortness of breath. Gastrointestinal: Negative for vomiting or abdominal pain Musculoskeletal: Negative for arm, leg or back pain Skin: Positive for fungal rash on hands Neurological: Negative for weakness or numbness. Other than noted above, the 12 point review of systems was reviewed with the patient and were negative, all pertinent findings are included in the HPI. PHYSICAL EXAMINATION: Vital signs reviewed, nursing noted reviewed. GENERAL: Well-appearing, well-nourished and in no acute distress. HEAD: Atraumatic, normocephalic. EYES: Eyes appear normal, conjunctiva are normal. ENT: nares patent, oropharynx clear without exudates. Moist mucous membranes. NECK: Normal range of motion, supple without lymphadenopathy LUNGS: Breath sounds clear to auscultation bilaterally and equal. No wheezes rales or rhonchi. CV: Appears well perfused EXTREMITIES: Nontender, good range of motion, no pitting or edema. However present on the patient's hands is what appears to be tinea manuum, and a moderate to severe case, nor other rashes appreciated NEUROLOGICAL: No focal neurological deficits. Moves all extremities spontaneously Motor and sensory grossly intact on exam. PSYCH: Normal mood, normal affect. SKIN: Warm, Dry, normal turgor, tinea manuum bilaterally. MEDICAL DECISION MAKING: Patient's exam is most consistent with tinea manuum, will treat with once daily Diflucan for 7 days, given 200 mg in the ED, have him follow-up with dermatology. He was also advised to use topical antifungal agents. Please review detail APC documentation. *Note is created using voice recognition software and may contain spelling, syntax or grammatical errors.
== END 2018-08-06 13:05 | disposition home or self-care (01) ==
LOC: ER 12:08
DX: B35.2 Tinea manuum (principal); F17.200 Nicotine dependence, unspecified, uncomplicated; I10 Essential (primary) hypertension; J45.909 Unspecified asthma, uncomplicated
CPT/HCPCS: 99283; A9270

== ENCOUNTER 2018-09-13 11:34 | Emergency (ER) | payer MEDICARE, MEDICAID ==
--- NOTE | 2018-09-13 12:22 | ER Document Report ---
ED Medical Screen (RME) - General Chief Complaint: Skin Problem Stated Complaint: HANDS SWELLING Time Seen by Provider: 09/13/18 12:09 Primary Care Provider: ROSE POLO DO [Primary Care Provider] - Follow up as needed Notes: Patient is a 68-year-old male who presents emergency department with a chief complaint of bilateral hand swelling and dryness. He states that he noticed his hands are getting swollen and itchy about 3 days ago. He states that he has had this problem in the past. He has been treated outpatient back in July, states he got a little better, but has gotten passively worse over the past 3 days. He has been treated with antibiotics before. He has a history of cellulitis in the past. His medical history includes hypertension, COPD, and asthma. States he is currently on blood thinners. Exam: Dry scaly hands with edema and erythema noted. Cracked areas of skin. I have greeted and performed a rapid initial assessment of this patient. A comprehensive ED assessment and evaluation of the patient, analysis of test results and completion of medical decision making process will be conducted by an additional ED providers. TRAVEL OUTSIDE OF THE [place] IN LAST 30 DAYS: No - Related Data Allergies/Adverse Reactions: No Known Drug Allergies Allergy (Verified 09/13/18 11:36) fish Adverse Reaction (Unknown, Uncoded 09/13/18 11:36) taste makes pt sick Past Medical History - Past Medical History Cardiac Medical History: Reports: Hx Atrial Fibrillation, Hx Hypertension Denies: Hx Coronary Artery Disease, Hx Heart Attack Pulmonary Medical History: Reports: Hx Asthma Denies: Hx Bronchitis, Hx COPD, Hx Pneumonia Neurological Medical History: Denies: Hx Cerebrovascular Accident, Hx Seizures Renal/ Medical History: Denies: Hx Peritoneal Dialysis GI Medical History: Denies: Hx Hepatitis, Hx Hiatal Hernia, Hx Ulcer Musculoskeltal Medical History: Denies Hx Arthritis Skin Medical History: Reports Hx Cellulitis Infectious Medical History: Denies: Hx Hepatitis Past Surgical History: Reports: Hx Orthopedic Surgery - right ankle. Denies: Hx Open Heart Surgery, Hx Pacemaker - Immunizations Hx Diphtheria, Pertussis, Tetanus Vaccination: No Doctor's Discharge - Discharge Referrals: ROSE POLO DO [Primary Care Provider] - Follow up as needed
[2018-09-13 12:49] LABS: ABSOLUTE EOSINOPHILS # (AUTO) 0.2 10^3/uL (0.0-0.6); ABSOLUTE LYMPHOCYTES (AUTO) 1.1 10^3/uL (0.5-4.7); ABSOLUTE MONOCYTES (AUTO) 0.5 10^3/uL (0.1-1.4); ABSOLUTE NEUT (AUTO) 3.1 10^3/uL (1.7-8.2); BASOPHILS % (AUTO) 0.6 % (0-2); EOSINOPHILS % (AUTO) 4.4 % (0-6); HEMOGLOBIN 15.7 g/dL (13.5-17.0); LYMPHOCYTES % (AUTO) 21.4 % (13-45); MEAN CORPUSCULAR HEMOGLOBIN 28.8 pg (27.0-33.4); MEAN CORPUSCULAR HGB CONC 33.5 g/dL (32.0-36.0); MEAN CORPUSCULAR VOLUME 86 fl (80-97); PLATELET COUNT 320 10^3/uL (150-450); RED BLOOD COUNT 5.47 10^6/uL (4.35-5.55); RED CELL DISTRIBUTION WIDTH 16.5 % (11.5-14.0); SEGMENTED NEUTROPHILS % (AUTO) 62.6 % (42-78); TOTAL CELLS COUNTED % (AUTO) 100 %
[2018-09-13 13:14] LABS: ALANINE AMINOTRANSFERASE 26 U/L (21-72); ALBUMIN 4.3 g/dL (3.5-5.0); ALKALINE PHOSPHATASE 84 U/L (38-126); ANION GAP 10 (5-19); ASPARTATE AMINO TRANSFERASE 18 U/L (17-59); BILIRUBIN,DIRECT 0.4 mg/dL (0.0-0.4); BILIRUBIN,TOTAL 0.9 mg/dL (0.2-1.3); BLOOD UREA NITROGEN 9 mg/dL (7-20); CARBON DIOXIDE 26 mmol/L (22-30); CHLORIDE 106 mmol/L (98-107); GLUCOSE 100 mg/dL (75-110); POTASSIUM 4.5 mmol/L (3.6-5.0); SODIUM 141.8 mmol/L (137-145); TOTAL PROTEIN 8.1 g/dL (6.3-8.2)
--- NOTE | 2018-09-13 14:04 | ER Document Report ---
ED General - General Chief Complaint: Skin Problem Stated Complaint: HANDS SWELLING Time Seen by Provider: 09/13/18 12:09 Primary Care Provider: ROSE POLO DO [Primary Care Provider] - Follow up in 3-5 days Notes: Patient is a 68-year-old male that presents to the emergency department for chief complaint of hand pain and possible infection. Patient is been dealing with what is thought to be a fungal infection of the hand, this is been going on for a few months now initially he was on a cream that was improving it, it was nystatin and triamcinolone, but then he was represcribed this and it was not working any further. He is scheduled to see a dip dyer at the end of the month, but his hands are becoming more cracked, and painful so he decided to come back to the emergency department sooner. He currently rates his pain as a 2 out of 10 describes as aching and painful when moving his fingers particularly in extension. Past Medical History: Hypertension, atrial fibrillation Past Surgical History: Ankle surgery Social History: Admits to smoking cigarettes daily, denies alcohol or drug use. Family History: Reviewed and noncontributory for presenting illness Allergies: Reviewed, see documented allergy list. REVIEW OF SYSTEMS: Other than noted above, the 12 point review of systems was reviewed with the patient and were negative, all pertinent findings are included in the HPI. PHYSICAL EXAMINATION: Vital signs reviewed, nursing noted reviewed. GENERAL: Elderly male, no acute distress. HEAD: Atraumatic, normocephalic. EYES: Eyes appear normal, sclera anicteric, conjunctiva are normal. ENT: Moist mucous membranes. NECK: Normal range of motion, supple without lymphadenopathy LUNGS: Breath sounds clear to auscultation bilaterally and equal. No wheezes rales or rhonchi. HEART: Regular rate and rhythm without murmurs EXTREMITIES:good range of motion, no pitting or edema. Bilateral hands are noted to be rather callused, and cracked, concerning for either possible limited psoriasis of the hands, versus tinea Manuum, unclear at this time, there are some open areas as well, with slight oozing of clear liquid, no purulence, there is tenderness with palpation on the fingers and palms as well. This involves the entire hand bilaterally. The rest of the patient's extremity exam appear to be unremarkable NEUROLOGICAL: No focal neurological deficits. Moves all extremities spontaneously Motor and sensory grossly intact on exam. PSYCH: Normal mood, normal affect. SKIN: Warm, Dry, normal turgor, aside from presentation of the patient's bilateral hands particular on the palms and fingers, I did not see any other lesions, or evidence of psoriatic lesions on the elbows, back, or scalp. TRAVEL OUTSIDE OF THE [place] IN LAST 30 DAYS: No - Related Data Allergies/Adverse Reactions: No Known Drug Allergies Allergy (Verified 09/13/18 11:36) fish Adverse Reaction (Unknown, Uncoded 09/13/18 11:36) taste makes pt sick Past Medical History - Social History Smoking Status: Never Smoker Chew tobacco use (# tins/day): No Frequency of alcohol use: None Drug Abuse: None Family History: Reviewed & Not Pertinent Patient has suicidal ideation: No Patient has homicidal ideation: No - Past Medical History Cardiac Medical History: Reports: Hx Atrial Fibrillation, Hx Hypertension Denies: Hx Coronary Artery Disease, Hx Heart Attack Pulmonary Medical History: Reports: Hx Asthma Denies: Hx Bronchitis, Hx COPD, Hx Pneumonia Neurological Medical History: Denies: Hx Cerebrovascular Accident, Hx Seizures Renal/ Medical History: Denies: Hx Peritoneal Dialysis GI Medical History: Denies: Hx Hepatitis, Hx Hiatal Hernia, Hx Ulcer Musculoskeletal Medical History: Denies Hx Arthritis Skin Medical History: Reports Hx Cellulitis Infectious Medical History: Denies: Hx Hepatitis Past Surgical History: Reports: Hx Orthopedic Surgery - right ankle. Denies: Hx Open Heart Surgery, Hx Pacemaker - Immunizations Hx Diphtheria, Pertussis, Tetanus Vaccination: No Physical Exam - Vital signs Vitals: Resp 16 09/13/18 12:50 Course - Re-evaluation Re-evalutation: Patient seen and examined vital signs reviewed. Patient was evaluated and treated as appropriate for the patient's presenting symptoms and complaint, with consideration of any critical or life threatening conditions that may be associated with their obtained history and exam as noted above. Evaluation was most consistent with either limited psoriasis to the hands versus tinea manuum, however not entirely clear, we will need to follow-up with dermatology, given a prescription for steroid cream, as well as antifungal cream, and advised follow-up, he is also given a prescription for Keflex as I fear he may be developing a secondary infection, blood work was ordered in triage, and was unremarkable. Plan of care was discussed with the patient at this point, after careful consideration I feel that that patient can be discharged from the emergency department, the patient was educated treatments and reasons to return to the emergency department based on their presumed diagnosis as noted above, they were advised to followup with a primary care physician in 2-3 days. Patient was agreeable to plan of care. *Note is created using voice recognition software and may contain spelling, syntax or grammatical errors. Laboratory 09/13/18 09/13/18 12:30 12:30 WBC 5.0 RBC 5.47 Hgb 15.7 Hct 47.0 MCV 86 MCH 28.8 MCHC 33.5 RDW 16.5 H Plt Count 320 Seg Neutrophils % 62.6 Lymphocytes % 21.4 Monocytes % 11.0 Eosinophils % 4.4 Basophils % 0.6 Absolute Neutrophils 3.1 Absolute Lymphocytes 1.1 Absolute Monocytes 0.5 Absolute Eosinophils 0.2 Absolute Basophils 0.0 Sodium 141.8 Potassium 4.5 Chloride 106 Carbon Dioxide 26 Anion Gap 10 BUN 9 Creatinine 0.82 Est GFR ( Amer) > 60 Est GFR (Non-Af Amer) > 60 Glucose 100 Calcium 10.0 Total Bilirubin 0.9 Direct Bilirubin 0.4 Neonat Total Bilirubin Not Reportable Neonat Direct Bilirubin Not Reportable Neonat Indirect Bili Not Reportable AST 18 ALT 26 Alkaline Phosphatase 84 Total Protein 8.1 Albumin 4.3 - Vital Signs Vital signs: Temp Pulse Resp BP Pulse Ox 76 19 136/82 H 98 09/13/18 14:47 09/13/18 14:47 09/13/18 14:47 09/13/18 14:47 - Laboratory Result Diagrams: 09/13/18 12:30 09/13/18 12:30 Laboratory results interpreted by me: 09/13/18 12:30 RDW 16.5 H Discharge - Discharge Clinical Impression: Hand lesion Condition: Stable Disposition: HOME, SELF-CARE Additional Instructions: Please follow-up with the dip dyer, as soon as possible, take all prescribed medications as directed. Use both creams that have been prescribed. Prescriptions: RX: Cephalexin Monohydrate [Keflex 500 mg Capsule] 500 mg PO Q8H 7 Days #21 capsule Hydrocortisone [Hydrocortisone 1% Cream 28.35 Gm] 1 applic TP BID #1 tube Terbinafine HCl [Terbinafine] 30 gm TP BID #1 tube Referrals: ROSE POLO DO [Primary Care Provider] - Follow up in 3-5 days
[2018-09-13 14:50] VITALS: BP 136/82
== END 2018-09-13 14:47 | disposition home or self-care (01) ==
LOC: ER 11:34
DX: L98.9 Disorder of the skin and subcutaneous tissue, unspecified (principal); L84 Corns and callosities; M79.641 Pain in right hand; M79.642 Pain in left hand; F17.210 Nicotine dependence, cigarettes, uncomplicated; I10 Essential (primary) hypertension
CPT/HCPCS: 36415; 80053; 85025; 99283

== ENCOUNTER 2018-10-01 08:52 | Observation (INO) | payer MEDICARE, MEDICAID ==
--- NOTE | 2018-10-01 09:57 | ER Document Report ---
ED Medical Screen (RME) - General Chief Complaint: Abscess Stated Complaint: BUTTOCKS PAIN Time Seen by Provider: 10/01/18 09:54 Primary Care Provider: ROSE POLO DO [Primary Care Provider] - Follow up as needed Mode of Arrival: Ambulatory Information source: Patient TRAVEL OUTSIDE OF THE [place] IN LAST 30 DAYS: No - HPI Patient complains to provider of: ABSCESS Notes: 10/01/18 09:56 Patient here with complaints of buttock abscess for the last few days. Once in the triage room, abscess ruptured and seems to be draining large amount of purulent drainage. Exam No distress, large abscess to the right buttocks draining large amount of purulent drainage with multiple other indurated and fluctuant areas noted. Plan CBC, CMP, saline lock, further evaluation by provider in the back to determine if further I&D is needed. An initial examination was made on the patient as part of the triage process, and it was determined a more comprehensive evaluation was necessary. Initial labs were ordered and patient was transferred to another provider in the ED who assumed care and finished evaluation and plan. - Related Data Allergies/Adverse Reactions: No Known Drug Allergies Allergy (Verified 10/01/18 08:53) fish Adverse Reaction (Unknown, Uncoded 10/01/18 08:53) taste makes pt sick Past Medical History - Past Medical History Cardiac Medical History: Reports: Hx Atrial Fibrillation, Hx Hypertension Denies: Hx Coronary Artery Disease, Hx Heart Attack Pulmonary Medical History: Reports: Hx Asthma Denies: Hx Bronchitis, Hx COPD, Hx Pneumonia Neurological Medical History: Denies: Hx Cerebrovascular Accident, Hx Seizures Renal/ Medical History: Denies: Hx Peritoneal Dialysis GI Medical History: Denies: Hx Hepatitis, Hx Hiatal Hernia, Hx Ulcer Musculoskeltal Medical History: Denies Hx Arthritis Skin Medical History: Reports Hx Cellulitis Infectious Medical History: Denies: Hx Hepatitis Past Surgical History: Reports: Hx Orthopedic Surgery - right ankle. Denies: Hx Open Heart Surgery, Hx Pacemaker - Immunizations Hx Diphtheria, Pertussis, Tetanus Vaccination: No Physical Exam - Vital signs Vitals: Temp Pulse Resp BP Pulse Ox 97.6 F 91 18 149/69 H 100 10/01/18 08:59 10/01/18 08:59 10/01/18 08:59 10/01/18 08:59 10/01/18 08:59 Course - Vital Signs Vital signs: Temp Pulse Resp BP Pulse Ox 97.6 F 91 18 149/69 H 100 10/01/18 08:59 10/01/18 08:59 10/01/18 08:59 10/01/18 08:59 10/01/18 08:59 Doctor's Discharge - Discharge Referrals: ROSE POLO DO [Primary Care Provider] - Follow up as needed
[2018-10-01 10:45] LABS: ABSOLUTE BASOPHILS # (AUTO) 0.1 10^3/uL (0.0-0.2); ABSOLUTE EOSINOPHILS # (AUTO) 0.2 10^3/uL (0.0-0.6); ABSOLUTE LYMPHOCYTES (AUTO) 0.9 10^3/uL (0.5-4.7); ABSOLUTE MONOCYTES (AUTO) 1.2 10^3/uL (0.1-1.4); ABSOLUTE NEUT (AUTO) 6.1 10^3/uL (1.7-8.2); BASOPHILS % (AUTO) 0.9 % (0-2); EOSINOPHILS % (AUTO) 2.7 % (0-6); HEMATOCRIT 43.7 % (37.9-51.0); HEMOGLOBIN 14.8 g/dL (13.5-17.0); LYMPHOCYTES % (AUTO) 10.9 % (13-45); MEAN CORPUSCULAR HEMOGLOBIN 29.2 pg (27.0-33.4); MEAN CORPUSCULAR HGB CONC 33.9 g/dL (32.0-36.0); MEAN CORPUSCULAR VOLUME 86 fl (80-97); MONOCYTES % (AUTO) 13.7 % (3-13); PLATELET COUNT 392 10^3/uL (150-450); RED BLOOD COUNT 5.07 10^6/uL (4.35-5.55); RED CELL DISTRIBUTION WIDTH 16.7 % (11.5-14.0); SEGMENTED NEUTROPHILS % (AUTO) 71.8 % (42-78); TOTAL CELLS COUNTED % (AUTO) 100 %; WHITE BLOOD COUNT 8.5 10^3/uL (4.0-10.5)
[2018-10-01 11:02] LABS: ALANINE AMINOTRANSFERASE 15 U/L (21-72); ALKALINE PHOSPHATASE 93 U/L (38-126); ANION GAP 10 (5-19); ASPARTATE AMINO TRANSFERASE 16 U/L (17-59); BILIRUBIN,DIRECT 0.5 mg/dL (0.0-0.4); BILIRUBIN,TOTAL 1.7 mg/dL (0.2-1.3); BLOOD UREA NITROGEN 6 mg/dL (7-20); CALCIUM 9.8 mg/dL (8.4-10.2); CARBON DIOXIDE 27 mmol/L (22-30); CHLORIDE 103 mmol/L (98-107); GLUCOSE 105 mg/dL (75-110); SODIUM 139.6 mmol/L (137-145); TOTAL PROTEIN 7.7 g/dL (6.3-8.2)
--- NOTE | 2018-10-01 11:23 | ER Document Report ---
ED General - General Chief Complaint: Abscess Stated Complaint: BUTTOCKS PAIN Time Seen by Provider: 10/01/18 09:54 Primary Care Provider: ROSE POLO DO [Primary Care Provider] - Follow up as needed Mode of Arrival: Ambulatory TRAVEL OUTSIDE OF THE [place] IN LAST 30 DAYS: No - HPI Notes: Patient is a 68-year-old male with a history of chronic ankle pain and on oxycodone who presents complaining of an abscess to his buttock area over the past few days that has since opened and been draining. Patient states that the areas are painful. He has had abscesses in this area before which required incision and drainage. He is otherwise eating and drinking without difficulty. He is urinating normally and having normal bowel movements. No history of MRSA or IV drug abuse. Denies drug allergies. No other concerns or complaints. Denies any headache, fever, URI, sore throat, chest pain, palpitations, syncope, cough, shortness of breath, wheeze, dyspnea, abdominal pain, nausea/vomiting/diarrhea, urinary retention, dysuria, hematuria. - Related Data Allergies/Adverse Reactions: No Known Drug Allergies Allergy (Verified 10/01/18 08:53) fish Adverse Reaction (Unknown, Uncoded 10/01/18 08:53) taste makes pt sick Past Medical History - General Information source: Patient - Social History Smoking Status: Unknown if Ever Smoked Family History: Reviewed & Not Pertinent Patient has suicidal ideation: No Patient has homicidal ideation: No - Past Medical History Cardiac Medical History: Reports: Hx Atrial Fibrillation, Hx Hypertension Denies: Hx Coronary Artery Disease, Hx Heart Attack Pulmonary Medical History: Reports: Hx Asthma Denies: Hx Bronchitis, Hx COPD, Hx Pneumonia Neurological Medical History: Denies: Hx Cerebrovascular Accident, Hx Seizures Renal/ Medical History: Denies: Hx Peritoneal Dialysis GI Medical History: Denies: Hx Hepatitis, Hx Hiatal Hernia, Hx Ulcer Musculoskeletal Medical History: Denies Hx Arthritis Skin Medical History: Reports Hx Cellulitis Infectious Medical History: Denies: Hx Hepatitis Past Surgical History: Reports: Hx Orthopedic Surgery - right ankle. Denies: Hx Open Heart Surgery, Hx Pacemaker - Immunizations Hx Diphtheria, Pertussis, Tetanus Vaccination: No Review of Systems - Review of Systems -: Yes All other systems reviewed and negative Physical Exam - Vital signs Vitals: Temp Pulse Resp BP Pulse Ox 97.6 F 91 18 149/69 H 100 10/01/18 08:59 10/01/18 08:59 10/01/18 08:59 10/01/18 08:59 10/01/18 08:59 - Notes Notes: PHYSICAL EXAMINATION: GENERAL: Well-appearing, well-nourished and in no acute distress. LUNGS: Breath sounds clear to auscultation bilaterally and equal. No wheezes rales or rhonchi. HEART: Regular rate and rhythm without murmurs, rubs, gallops. ABDOMEN: Soft, nontender, nondistended abdomen. No guarding, no rebound. No masses appreciated. Normal bowel sounds present. No CVA tenderness bilaterally. Buttock: + induration, erythema, fluctuance, tenderness, and purulence noted Lt buttock > Rt buttock but also includes midline. Musculoskeletal: FROM to passive/active. Strength 5+/5. Extremities: No cyanosis, clubbing, or edema b/l. Peripheral pulses 2+. Capillary refill less than 3 seconds. NEUROLOGICAL: Normal speech, normal gait. PSYCH: Normal mood, normal affect. SKIN: see above. Course - Re-evaluation Re-evalutation: 10/01/18 11:22 Patient is an afebrile, well-hydrated, 68-year-old male who presents with an abscess to his buttock, probable pilonidal abscess. Vitals are currently acceptable without significant tachycardia, tachypnea, or hypoxia. PE is ot herwise unremarkable. Patient is nontoxic-appearing. Patient has remained n.p.o. since last night. I did call and speak with our surgeon, Dr. Beal, will come evaluate the patient. Lab work otherwise unremarkable at this time. Patient is in agreement with this plan. 10/01/18 12:00 Dr. Lian bolaños'd the patient and is accepting pt under care of his services. Pt in agreement. Zosyn and fluids ordered. Pt to be kept NPO. - Vital Signs Vital signs: Temp Pulse Resp BP Pulse Ox 97.6 F 91 18 149/69 H 100 10/01/18 08:59 10/01/18 08:59 10/01/18 08:59 10/01/18 08:59 10/01/18 08:59 - Laboratory Result Diagrams: 10/01/18 10:21 05/22/19 10:21 Laboratory results interpreted by me: 10/01/18 10/01/18 10:21 10:21 RDW 16.7 H Lymphocytes % 10.9 L Monocytes % 13.7 H BUN 6 L Total Bilirubin 1.7 H Direct Bilirubin 0.5 H AST 16 L ALT 15 L Discharge - Discharge Clinical Impression: Abscess of buttock Condition: Stable Disposition: ADMITTED INPATIENT Admitting Provider: Surgicalist - Dr. Beal Unit Admitted: Surgical Floor Referrals: ROSE POLO DO [Primary Care Provider] - Follow up as needed
[2018-10-01] MEDS ORDERED: NORMAL SALINE 1000 ML 1,000 ML IV ONE (12:10)
[2018-10-01] MEDS ORDERED: PIPERACILLIN/TAZOBACTAM 3.375 GM VIAL IV ONE (12:10)
[2018-10-01] MEDS ORDERED: NORMAL SALINE 1000 ML 1,000 ML IV PRN ×2 (12:10→18:05)
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
[2018-10-01] MEDS ORDERED: LIDOCAINE 0.5% INJ-PF (5 MG/ML) 50 ML SDV ONE (13:57)
[2018-10-01] MEDS ORDERED: FENTANYL CITRATE INJ/PF 100 MCG/2 ML AMPUL ONE (16:47)
[2018-10-01] MEDS ORDERED: MORPHINE SULFATE 10 MG/ML INJ ONE (16:48)
[2018-10-01] MEDS ORDERED: PROPOFOL INJ 200 MG/20 ML VIAL IV ONE (16:48)
[2018-10-01] MEDS ORDERED: MIDAZOLAM 2 MG/2 ML INJ ONE (16:48)
[2018-10-01] MEDS ORDERED: DIPHENHYDRAMINE HCL 50 MG/ML VIAL IV PRN (17:29)
[2018-10-01] MEDS ORDERED: FENTANYL CITRATE INJ/PF 100 MCG/2 ML AMPUL IV PRN ×3 (17:29)
[2018-10-01] MEDS ORDERED: MEPERIDINE HCL/PF INJ 25 MG/1 ML DISP.SYRIN IV PRN (17:29)
[2018-10-01] MEDS ORDERED: MORPHINE SULFATE 10 MG/ML INJ IV PRN (17:29)
[2018-10-01] MEDS ORDERED: PROMETHAZINE HCL INJ 25 MG/1 ML VIAL IV PRN (17:29)
[2018-10-01] MEDS ORDERED: OXYCODONE-ACETAMINOPHEN 5-325 MG TABLET PO PRN (18:05)
[2018-10-01 18:59] VITALS: BP 150/95
[2018-10-01] MEDS ORDERED: PIPERACILLIN SODIUM/TAZOBACTAM 3.375 GM in NORMAL SALINE 100 ML IV SCH (21:00)
--- NOTE | 2018-10-01 23:39 | EKG REPORT ---
SEVERITY:- BORDERLINE ECG - SINUS RHYTHM BORDERLINE LEFT AXIS DEVIATION BORDERLINE PROLONGED QT INTERVAL : Confirmed by: Isi Paniagua 01-Oct-2018 23:38:16
[2018-10-02] MEDS ORDERED: KETOROLAC TROMETHAMINE INJ/PF 30 MG/1 ML SDV IV SCH (19:00)
--- NOTE | 2018-10-05 14:39 | OPERATIVE REPORT E ---
Operative Report NAME: WILLIE SELF : 1950 AGE: 68Y DATE OF SURGERY: 10/01/2018 ROOM: 535 PREOPERATIVE DIAGNOSIS: ABSCESS, RIGHT BUTTOCK. POSTOPERATIVE DIAGNOSIS: ABSCESS, RIGHT BUTTOCK. OPERATION: Incision and drainage of abscess, right buttock, total length of about 10 x 1.5 cm, down to the subcutaneous area. SURGEON: NITHYA ERIC M.D. ANESTHESIA: Local, MAC. INDICATIONS: This is a 68-year-old male noted to have pains along the right buttock area for the past 3 days. Patient had previous I and D of the buttock abscess less than a year ago. Denies any fever or chills. PROCEDURE: Patient was placed in prone position and patient given adequate IV sedation. The right buttock area was then prepped and draped in the usual sterile fashion and appropriate timeout was called. Next, local anesthesia infiltrated around the buttock area, where he has a small opening distally, about 8 cm from the anal verge and extending to the lateral coccygeal site. The area was then probed, connecting the 2 openings, and subsequently opened. The length of the abscess site was roughly about 10 cm long. Area was subsequently pulse lavaged. No other area of abscess noted and this appeared to be relatively superficial, just at the subcutaneous layer. Hemostasis obtained with cautery. Next, the area was packed with 0.25 inch Iodoform gauze. The size of the abscess cavity roughly measured about 10.5 cm long by about 2 cm wide. Sterile dressings placed over the operative site. Needle, instrument and sponge counts were all correct and estimated blood loss was minimal. DICTATING PHYSICIAN: NITHYA EIRC M.D. [id number] PHY#: [id number] ID: [id number] JOB#: [id number] ACCT: [id number] cc:NITHYA ERIC M.D. >
--- NOTE | 2018-10-05 14:49 | DISCHARGE SUMMARY E ---
Discharge Summary NAME: WILLIE SELF : 1950 AGE: 68Y ADMITTED: 10/01/2018 DISCHARGED: 10/01/2018 This patient signed AMA on 10/01/2018. PROCEDURE: Incision and drainage of right buttock abscess, 10/01/2018. Surgeon: Armando Beal MD. HOSPITAL COURSE: Patient from the ER brought to the OR for incision and drainage of abscess of the right buttock area. This was done under local anesthesia with sedation. The wound was then packed with quarter-inch Iodoform gauze. Immediately after surgery, in the recovery room, patient brought upstairs. Unfortunately, the patient decided to leave against medical advice. I was in the operating room and did not have time to talk to the patient. DICTATING PHYSICIAN: ARMANDO BEAL M.D. [id number] PHY#: [id number] ID: [id number] JOB#: [id number] ACCT: [id number] cc:ARMANDO BEAL M.D. >
== END 2018-10-01 19:20 | disposition left against medical advice (07) ==
LOC: ER 08:52 → EH 12:21 → INTOOBSV 12:21 → 5 18:40
PROVIDERS: ADMIT Surgery; ATTEND Surgery
PROC: 0J990ZZ Drainage of Buttock Subcutaneous Tissue and Fascia, Open Approach (ICD-10-PCS; principal; 2018-10-01 16:15)
DX: L02.31 Cutaneous abscess of buttock (principal); F17.210 Nicotine dependence, cigarettes, uncomplicated; R21 Rash and other nonspecific skin eruption; G89.29 Other chronic pain; M25.579 Pain in unspecified ankle and joints of unspecified foot; J45.909 Unspecified asthma, uncomplicated; Z98.890 Other specified postprocedural states; Z79.891 Long term (current) use of opiate analgesic
CPT/HCPCS: 10060; 99285; 36415; 87070; 87205; 85025; 87075; 87077; 80053; 93005; 93010; G0378 ×2; J2250; J3490; J2270; J7030; J2704; J2543; 300; J3010

== ENCOUNTER 2018-10-02 16:23 | Emergency (ER) | payer MEDICARE, MEDICAID ==
[2018-10-02] MEDS ORDERED: SULFAMETHOXAZOLE/TRIMETHOPRIM 800-160 MG TABLET PO ONE (19:24)
--- NOTE | 2018-10-02 19:30 | ER Document Report ---
ED General - General Chief Complaint: Abscess Recheck Stated Complaint: POST OP COMPLICATIONS Time Seen by Provider: 10/02/18 18:56 Primary Care Provider: NITHYA BEAL MD [[facility]] - Follow up in 3-5 days ROSE POLO DO [Primary Care Provider] - Follow up as needed Notes: Patient is a 68-year-old male with past medical history of hypertension, atrial fibrillation, presents with concern of packing falling out of the wound to his right buttock. Patient had incision and drainage with excision of tissue to the right buttocks performed by Dr. Beal yesterday. He left AGAINST MEDICAL ADVICE and did not get placed on antibiotics prior to discharge. Patient returns today because the packing fell out. He does note a mild, throbbing, constant discomfort to the area that he states is better than yesterday. Touching the area worsens the pain. Nothing improves the pain. Has not noted any increased drainage from the area, no fever or constitutional symptoms. Has not yet followed up with his primary care doctor regarding today's concerns. TRAVEL OUTSIDE OF THE [place] IN LAST 30 DAYS: No - Related Data Allergies/Adverse Reactions: No Known Drug Allergies Allergy (Verified 10/02/18 18:28) fish Adverse Reaction (Unknown, Uncoded 10/02/18 18:28) taste makes pt sick Past Medical History - General Information source: Patient - Social History Smoking Status: Current Every Day Smoker Chew tobacco use (# tins/day): No Frequency of alcohol use: None Drug Abuse: None Lives with: Family Family History: Reviewed & Not Pertinent Patient has suicidal ideation: No Patient has homicidal ideation: No - Past Medical History Cardiac Medical History: Reports: Hx Atrial Fibrillation, Hx Hypertension Denies: Hx Coronary Artery Disease, Hx Heart Attack Pulmonary Medical History: Reports: Hx Asthma Denies: Hx Bronchitis, Hx COPD, Hx Pneumonia Neurological Medical History: Denies: Hx Cerebrovascular Accident, Hx Seizures Renal/ Medical History: Denies: Hx Peritoneal Dialysis GI Medical History: Denies: Hx Hepatitis, Hx Hiatal Hernia, Hx Ulcer Musculoskeletal Medical History: Denies Hx Arthritis Skin Medical History: Reports Hx Cellulitis Infectious Medical History: Denies: Hx Hepatitis Past Surgical History: Reports: Hx Orthopedic Surgery - right ankle. Denies: Hx Open Heart Surgery, Hx Pacemaker - Immunizations Hx Diphtheria, Pertussis, Tetanus Vaccination: No Review of Systems - Review of Systems Notes: Constitutional: Negative for fever. HENT: Negative for sore throat. Eyes: Negative for visual changes. Cardiovascular: Negative for chest pain. Respiratory: Negative for shortness of breath. Gastrointestinal: Negative for abdominal pain, vomiting or diarrhea. Genitourinary: Negative for dysuria. Musculoskeletal: Negative for back pain. Skin: Positive for right buttock wound Neurological: Negative for headaches, weakness or numbness. 10 point ROS negative except as marked above and in HPI. Physical Exam - Vital signs Vitals: Temp Pulse Resp BP Pulse Ox 98.1 F 85 18 129/77 H 97 10/02/18 18:28 10/02/18 18:28 10/02/18 18:28 10/02/18 18:28 10/02/18 18:28 Interpretation: Normal Notes: PHYSICAL EXAMINATION: GENERAL: Well-appearing, well-nourished and in no acute distress. HEAD: Atraumatic, normocephalic. EYES: Pupils equal round and reactive to light, extraocular movements intact, sclera anicteric, conjunctiva are normal. ENT: nares patent, oropharynx clear without exudates. Moist mucous membranes. NECK: Normal range of motion, supple without lymphadenopathy LUNGS: Breath sounds clear to auscultation bilaterally and equal. No wheezes rales or rhonchi. HEART: Regular rate and rhythm without murmurs ABDOMEN: Soft, nontender, normoactive bowel sounds. No guarding, no rebound. No masses appreciated. EXTREMITIES: Normal range of motion, no pitting or edema. No cyanosis. NEUROLOGICAL: No focal neurological deficits. Moves all extremities spontaneously and on command. PSYCH: Normal mood, normal affect. SKIN: Warm, Dry, normal turgor, large patch postsurgical wound on the right mid buttock, appropriate granulation tissue, no surrounding erythema or induration. No malodor. Course - Re-evaluation Re-evalutation: 10/02/18 19:25 Patient presents after having a large incision and drainage of his right buttocks yesterday by Dr. Beal. He returns as the packing did fall out. The wound itself looks very well, no spreading erythema or induration, no malodor or ongoing discharge from the area. I did speak to Dr. Noland who advised not re packing the area, dressing the area and start and the patient on trimethoprim sulfamethoxazole. No indication for repeat labs. Vitals are within normal limits. Patient does not meet sepsis criteria. Comfortable with this plan. At this time will discharge with return precautions and follow-up recommendations. Verbal discharge instructions given a the bedside and opportunity for questions given. Medication warnings reviewed. Patient is in agreement with this plan and has verbalized understanding of return precautions and the need for surgery clinic within the next 1 week. - Vital Signs Vital signs: Temp Pulse Resp BP Pulse Ox 99 F 72 20 137/88 H 97 10/02/18 20:08 10/02/18 20:08 10/02/18 20:08 10/02/18 20:08 10/02/18 20:08 Discharge - Discharge Clinical Impression: Abscess of buttock, Wound check, abscess Condition: Good Disposition: HOME, SELF-CARE Additional Instructions: Please take antibiotics as prescribed. You need to clean the area once daily with soap and water then apply topical bacitracin over the affected area and apply a dressing. Please follow-up closely in the surgical clinic within the next 1 week. This plan was discussed with Dr. Beal the surgeon who performed your operation yesterday who recommends this approach. Return if you develop a fever greater than 100.4 F, persistent vomiting, increasing pain to the area, or any other symptoms that are worrisome to you. Prescriptions: Sulfamethoxazole/Trimethoprim [Bactrim Ds Tablet] 2 tab PO BID #28 tablet Referrals: ROSE POLO DO [Primary Care Provider] - Follow up as needed NITHYA BEAL MD [[facility]] - Follow up in 3-5 days
[2018-10-02 20:32] VITALS: BP 137/88
== END 2018-10-02 20:08 | disposition home or self-care (01) ==
LOC: ER 16:23
DX: Z48.817 Encounter for surgical aftercare following surgery on the skin and subcutaneous tissue (principal); L02.31 Cutaneous abscess of buttock; F17.200 Nicotine dependence, unspecified, uncomplicated; I10 Essential (primary) hypertension; J45.909 Unspecified asthma, uncomplicated
CPT/HCPCS: 99283; A9270